=== PATIENT | female | born 1995 | race African-American/Black ===

== ENCOUNTER 2023-12-20 19:08 | Inpatient (IN) | payer OTHER ==
[~2023-12-20] VITALS: Ht 162.6 cm; Wt 75.7 kg
[2023-12-20 19:13] VITALS: O2SAT 99
[2023-12-20] MEDS: DICYCLOMINE HCL 10MG/ML 2ML VIAL IM ONE (19:30)
[2023-12-20] MEDS ORDERED: METOCLOPRAMIDE HCL 10MG/2ML VIAL IV ONE (19:30)
[2023-12-20 20:01] LABS: BASOPHILS % 0.8 % (0.0-2.0); HEMATOCRIT. 40.6 % (36.0-48.0); HEMOGLOBIN. 13.1 g/dL (12.0-16.0); LYMPHOCYTES % 46.1 % (20.0-50.0); MEAN CORPUSCULAR HEMOGLOBIN 29.7 pg (28.0-32.0); MEAN CORPUSCULAR HGB CONC 32.4 g/dL (31.0-37.0); MEAN CORPUSCULAR VOLUME 91.8 fL (81.0-99.0); MEAN PLATELET VOLUME 8.9 fl (7.4-10.4); MONOCYTES % 7.2 % (2.0-8.0); NEUTROPHILS % 43.9 % (40.0-76.0); PLATELET 413 x1000/uL (130-400); RED BLOOD CELL COUNT 4.42 mill/uL (4.2-5.4); RED CELL DISTRIBUTION WIDTH 14.4 % (11.6-14.6); WHITE BLOOD COUNT 4.7 x1000/uL (4.5-11.0)
[2023-12-20 20:06] LABS: CARBON DIOXIDE 24 mEq/L (21-32); CHLORIDE 103 mEq/L (98-107); POTASSIUM 3.5 mEq/L (3.5-5.1); SODIUM 135 mEq/L (136-145)
[2023-12-20 20:07] LABS: CALCIUM 10.2 mg/dL (8.7-10.4)
[2023-12-20 20:08] LABS: HCG SCREEN NEGATIVE
[2023-12-20 20:11] LABS: CREATININE 0.9 mg/dL (0.6-1.0)
[2023-12-20 20:12] LABS: GLUCOSE 314 mg/dL (70-105); UREA NITROGEN BLOOD 6 mg/dL (9-23)
[2023-12-20 20:13] LABS: ALANINE AMINOTRANSFERASE 14 IU/L (10-49)
[2023-12-20 20:14] LABS: ASPARTATE AMINOTRANSFERASE 16 IU/L (<34); BILIRUBIN DIRECT 0.1 mg/dL (<=3.0); BILIRUBIN TOTAL 0.5 mg/dL (0.1-1.0); PROTEIN TOTAL 7.3 g/dL (6.0-8.3)
[2023-12-20] MEDS ORDERED: MORPHINE SULFATE 4 MG/ML INJ (FOR IV/IM USE) IV ONE (20:15)
[2023-12-20] MEDS ORDERED: NITROGLYCERIN 0.4MG TABLET SL SL PRN (22:30)
[2023-12-21] VITALS: BP 98/77; PULSE 113; RESP 20; TEMP 36.28068; O2SAT 98
[2023-12-21] MEDS: SODIUM CHLORIDE 0.9% 1,000 ML IV ONE (00:12)
[2023-12-21] MEDS: PANTOPRAZOLE SODIUM 40 MG/VIAL IV SCH (00:12)
[2023-12-21] MEDS: ACETAMINOPHEN 1000MG/100ML 100 ML IV ONE (00:12)
[2023-12-21] MEDS: METOCLOPRAMIDE HCL 10MG/2ML VIAL IV NR (00:12)
[2023-12-21] MEDS: MORPHINE SULFATE 4 MG/ML INJ (FOR IV/IM USE) IV NR (00:13)
[2023-12-21] MEDS: ZOLPIDEM TARTRATE 5MG TABLET PO PRN (00:51)
[2023-12-21 01:48] VITALS: BP 98/77; PULSE 113; RESP 20; TEMP 36.3068
[2023-12-21] MEDS ORDERED: ONDANSETRON HCL 4MG/2ML INJ IV PRN (06:45)
[2023-12-21] MEDS ORDERED: DOCUSATE SODIUM 100MG CAPSULE PO PRN (06:45)
[2023-12-21] MEDS ORDERED: MAGNESIUM/ALUMINUM HYDROXIDE/SIMETHICONE 30ML UDC PO PRN (06:45)
[2023-12-21] MEDS ORDERED: GUAIFENESIN 200MG/10ML SUGAR FREE UDC PO PRN (06:45)
[2023-12-21] MEDS ORDERED: ACETAMINOPHEN 325MG TABLET PO PRN ×2 (06:45)
[2023-12-21] MEDS ORDERED: DEXTROSE 50% WATER 50ML SYRINGE IV PRN (07:15)
[2023-12-21] MEDS: BLOOD SUGAR DIAGNOSTIC STRIP TEST SCH (07:35)
[2023-12-21] MEDS: INSULIN LISPRO 100 UNITS/ML SUBCUT SCH (07:56)
[2023-12-21] MEDS: INSULIN GLARGINE 100 UNITS/ML SUBCUT SCH (10:21)
[2023-12-21 12:00] VITALS: BP 175/101; PULSE 94; RESP 18; TEMP 36.61404; O2SAT 99
[2023-12-21 13:00] VITALS: BP 167/111; PULSE 103; RESP 18; TEMP 36.3918; TEMP 36.39180; O2SAT 98
[2023-12-21] MEDS: CLONIDINE 0.1MG TABLET PO PRN (13:06)
[2023-12-21 17:57] LABS: CLARITY URINE CLEAR (CLEAR); COLOR URINE YELLOW (YELLOW); GLUCOSE URINE NEGATIVE (NEGATIVE); KETONES URINE 2+ (NEGATIVE); LEUKOCYTE ESTERASE URINE TRACE (NEGATIVE); NITRITE URINE NEGATIVE (NEGATIVE); OCCULT BLOOD URINE NEGATIVE (NEGATIVE); PROTEIN URINE NEGATIVE (NEGATIVE); SPECIFIC GRAVITY URINE 1.016 (1.005-1.030)
[2023-12-21 18:13] LABS: *AMPHETAMINES SCREEN URINE NEGATIVE (NEGATIVE); *BENZODIAZEPINES SCREEN URINE NEGATIVE (NEGATIVE)
[2023-12-21 18:14] LABS: *BARBITURATES SCREEN URINE NEGATIVE (NEGATIVE); *COCAINE SCREEN URINE NEGATIVE (NEGATIVE); CANNABINOID URINE SCREEN PRESUMPTIVE POSITIVE (NEGATIVE); ECSTASY MDMA SCREEN URINE NEGATIVE (NEGATIVE); METHADONE URINE SCREEN NEGATIVE (NEGATIVE); OPIATES URINE SCREEN PRESUMPTIVE POSITIVE (NEGATIVE); PHENCYCLIDINE URINE SCREEN NEGATIVE (NEGATIVE)
[2023-12-21 18:18] LABS: BACTERIA URINE 2+; RBC URINE 0-2 /hpf (0-2); SQUAMOUS EPITHELIAL CELL URINE 1+ /lpf (RARE/1+); WBC URINE 0-2 /hpf (0-2)
[2023-12-21] MEDS ORDERED: ASCORBIC ACID 500 MG TABLET PO SCH (21:00)
[2023-12-22] MEDS ORDERED: MULTIVITAMINS,THER W-MINERALS TABLET PO SCH (09:00)
[2023-12-22] MEDS ORDERED: OMEP20CA14 MT (10:25)
[2023-12-22] MEDS ORDERED: SUCR1TAB30 MT (10:26)
[2023-12-25] MEDS ORDERED: QUET100T34 MT (09:53)
[2023-12-25] MEDS ORDERED: INSU100I28 SQ (09:53)
[2023-12-25] MEDS ORDERED: FAMO-287 MT (09:53)
[2023-12-25] MEDS ORDERED: LISI40TA13 MT (09:53)
[2023-12-25] MEDS ORDERED: BUSP10TA3 MT (09:53)
[2023-12-25] MEDS ORDERED: BUPR1FIL SL (09:53)
[2023-12-26] MEDS ORDERED: INSU100I28 SQ (12:55)
[2023-12-26] MEDS ORDERED: METF-414 MT (12:55)
== END 2023-12-22 11:28 | disposition home or self-care (01) | DRG 241 ==
LOC: ER 19:08 → 6WST 22:10 → EDBEDREQTM 22:11 → EDBEDREQ 22:11
PROVIDERS: ADMIT Internal Medicine; ATTEND Internal Medicine
DX: K29.70 Gastritis, unspecified, without bleeding (principal); E87.1 Hypo-osmolality and hyponatremia; F10.10 Alcohol abuse, uncomplicated; Z20.822 Contact with and (suspected) exposure to COVID-19; E88.09 Other disorders of plasma-protein metabolism, not elsewhere classified; I10 Essential (primary) hypertension; Z76.5 Malingerer [conscious simulation]; Z88.8 Allergy status to other drugs, medicaments and biological substances; Z88.0 Allergy status to penicillin; Z79.899 Other long term (current) drug therapy; E10.65 Type 1 diabetes mellitus with hyperglycemia
CPT/HCPCS: 36415; 71045; 80048; 80076; 80305; 81003; 82010; 82962; 83036; 83605; 84443; 84703; 85025; 87426; 93005; 93970; 99285; J0500; J1815; J2270; J2470; J2765; J7030; J0131